=== PATIENT | male | born 1965 | race Caucasian/White ===

== ENCOUNTER 2025-05-29 06:06 | Day surgery (SDC) | payer BC ==
[~2025-05-29 06:06] MED LIST: Lactated Ringers 1,000 ML IV SCH; Sodium Chloride 0.9% 10 ML Syringe FLUSH PRN; Sodium Chloride 0.9% 10 ML Syringe FLUSH SCH
[2025-05-29] MEDS: Lactated Ringers 1,000 ML IV SCH (06:25)
[2025-05-29] MEDS ORDERED: Ondansetron 4 MG/2 ML SDV ONE (06:25)
[2025-05-29] MEDS ORDERED: Dexamethasone 4 MG/ML 5 ML MDV ONE (06:25)
[2025-05-29] MEDS ORDERED: Propofol 200 MG/20 ML SDV ONE (06:25)
[2025-05-29] MEDS ORDERED: fentaNYL 250 MCG/5 ML SDV ONE (06:25)
[2025-05-29] MEDS ORDERED: Phenylephrine 1% 10 MG/ML SDV ONE (06:25)
[2025-05-29] MEDS: oxyCODONE ER 10 MG TAB.ER PO ONE (06:42)
[2025-05-29] MEDS ORDERED: Midazolam 1 MG/ML 2 ML SDV ONE (06:46)
[2025-05-29] MEDS ORDERED: Ropivacaine 0.5% 5 MG/ML 30 ML SDV ONE (07:04)
[2025-05-29 07:10] LABS: INR 0.98
[2025-05-29 07:26] LABS: PTT,PARTIAL THROMBOPLSTIN TIME 26.5 SECONDS (21.7-31.4)
[2025-05-29] MEDS ORDERED: fentaNYL 100 MCG/2 ML SDV IVPUSH PRN (07:52)
[2025-05-29] MEDS ORDERED: Ondansetron 4 MG/2 ML SDV IVPUSH PRN (07:52)
[2025-05-29] MEDS ORDERED: Lactated Ringers 1,000 ML ONE (07:53)
[2025-05-29] MEDS ORDERED: ePHEDrine 50 MG/ML SDV ONE (08:03)
== END 2025-05-29 11:35 | disposition home or self-care (01) ==
LOC: JD.SDS 06:06
PROVIDERS: ATTEND Orthopaedic Surgery
DX: M19.011 Primary osteoarthritis, right shoulder (principal); I10 Essential (primary) hypertension; E11.9 Type 2 diabetes mellitus without complications; E78.00 Pure hypercholesterolemia, unspecified; F41.9 Anxiety disorder, unspecified; F17.210 Nicotine dependence, cigarettes, uncomplicated; Z79.899 Other long term (current) drug therapy
CPT/HCPCS: 23472; 36415; 64415; 76000; 85610; 85730; 97165; 97535; A9270; C1713; C1769; C1776; J0690; J1100; J2250; J2371; J2405; J2704; J2795; J3010; J3373; J7120; 01638; J3490